=== PATIENT | female | born 1995 | race Two or more races ===

== ENCOUNTER 2016-09-01 14:17 | Emergency (ER) | payer OTHER ==
[~2016-09-01] VITALS: Ht 154.9 cm; Wt 48.8 kg
[2016-09-01 14:24] VITALS: BP 111/76
== END 2016-09-01 16:20 | disposition home or self-care (01) ==
LOC: ED 14:17
DX: M26.621 Arthralgia of right temporomandibular joint (principal)

== ENCOUNTER 2017-12-25 11:20 | Emergency (ER) | payer OTHER ==
[~2017-12-25] VITALS: Ht 154.9 cm; Wt 55.8 kg
[2017-12-25 11:30] VITALS: Ht 154.9 cm; Wt 55.8 kg
[2017-12-25 12:19] VITALS: BP 120/69
== END 2017-12-25 12:15 | disposition home or self-care (01) ==
LOC: ED 11:20
DX: H10.9 Unspecified conjunctivitis (principal)

== ENCOUNTER 2019-06-19 09:03 | Emergency (ER) | payer OTHER ==
[~2019-06-19] VITALS: Ht 154.9 cm; Wt 65.3 kg
[2019-06-19 09:05] VITALS: Ht 154.9 cm; Wt 65.3 kg
[2019-06-19 10:40] VITALS: BP 122/60
== END 2019-06-19 10:40 | disposition home or self-care (01) ==
LOC: ED 09:03
DX: K08.89 Other specified disorders of teeth and supporting structures (principal); Z98.890 Other specified postprocedural states

== ENCOUNTER 2020-04-11 08:28 | Emergency (ER) | payer OTHER ==
[~2020-04-11] VITALS: Ht 157.5 cm; Wt 59.0 kg
[2020-04-11 09:02] VITALS: BP 137/56; Ht 157.5 cm; Wt 59.0 kg
== END 2020-04-11 14:58 | disposition home or self-care (01) ==
LOC: ED 08:28
DX: S86.911A Strain of unspecified muscle(s) and tendon(s) at lower leg level, right leg, initial encounter (principal); Z98.890 Other specified postprocedural states; X50.1XXA Overexertion from prolonged static or awkward postures, initial encounter; Y93.89 Activity, other specified; Y92.89 Other specified places as the place of occurrence of the external cause; Y99.8 Other external cause status